=== PATIENT | male | born 1955 ===

== ENCOUNTER 2020-03-28 21:24 | Emergency (ER) | payer SELFPAY ==
[~2020-03-28] VITALS: Ht 172.7 cm; Wt 81.8 kg
[2020-03-28] MEDS ORDERED: PLEASE ENTER ALLERGIES MC SCH (22:00)
[2020-03-28 22:31] LABS: BASOPHILS % (AUTO) 1 % (0-1); EOSINOPHILS % (AUTO) 1 % (1-7); LYMPHOCYTES % (AUTO) 14 % (22-44); MEAN CORPUSCULAR HEMOGLOBIN 30.9 pg (27.5-34.5); MEAN CORPUSCULAR HGB CONC 33.6 g/dL (33.2-36.2); MEAN PLATELET VOLUME 8.5 fL (7.4-10.4); MONOCYTES % (AUTO) 7 % (2-9); NEUTROPHILS % (AUTO) 77 % (42-75); PLATELET COUNT 179 x10^3/uL (130-400); RED BLOOD COUNT 4.99 x10^6/uL (4.38-5.82); RED CELL DISTRIBUTION WIDTH 14.1 % (9.4-14.8)
[2020-03-28 22:35] LABS: MD NO
[2020-03-28 22:40] LABS: ALBUMIN 3.8 g/dL (3.4-5.0); ANION GAP 3 mmol/L (5-15); CALCIUM 8.9 mg/dL (8.5-10.1); CHLORIDE 109 mmol/L (98-107); CREATININE 1.07 mg/dL (0.7-1.3)
[2020-03-28 22:55] VITALS: BP 184/100
== END 2020-03-28 23:14 | disposition home or self-care (01) ==
LOC: ED 22:30
DX: I10 Essential (primary) hypertension (principal); R06.02 Shortness of breath; R07.9 Chest pain, unspecified; R94.31 Abnormal electrocardiogram [ECG] [EKG]
CPT/HCPCS: 36415; 71045; 80048; 82040; 85025; 99284

== ENCOUNTER 2020-11-23 20:48 | Emergency (ER) | payer OTHER ==
[~2020-11-23] VITALS: Ht 172.7 cm; Wt 87.0 kg
--- NOTE | 2020-11-23 21:05 | NUR ---
[facility] FOR C/O LEFT LOWER LEG CELLULITIS X1 WEEK, ALSO REPORTS HE HAS SMALL BUMP ON RIGHT BUTTOCK. PT PLACED ON ALL MONITORS. ONE GUARD AT BEDSIDE WITH PT.
[2020-11-23] MEDS ORDERED: LIDOCAINE-MPF 2% ,5ML ONE (21:26)
[2020-11-23] MEDS ORDERED: LIDOCAINE 1%, 10ML INFIL ONE (21:30)
[2020-11-23] MEDS ORDERED: DIPH,PERTUSS(ACELL),TET VAC/PF 0.5 ML IM-VACC ONE ×2 (21:30→21:37)
--- NOTE | 2020-11-23 21:42 | NUR ---
LAB AT BEDSIDE.
[2020-11-23 21:51] LABS: BASOPHILS % (AUTO) 1 % (0-1); EOSINOPHILS % (AUTO) 2 % (1-7); LYMPHOCYTES % (AUTO) 16 % (22-44); MEAN CORPUSCULAR HEMOGLOBIN 31.8 pg (27.5-34.5); MEAN CORPUSCULAR HGB CONC 35.1 g/dL (33.2-36.2); MEAN PLATELET VOLUME 8.5 fL (7.4-10.4); MONOCYTES % (AUTO) 9 % (2-9); NEUTROPHILS % (AUTO) 73 % (42-75); PLATELET COUNT 210 x10^3/uL (130-400); RED CELL DISTRIBUTION WIDTH 12.9 % (9.4-14.8)
[2020-11-23 22:02] LABS: ALBUMIN 3.5 g/dL (3.4-5.0); ANION GAP 6 mmol/L (5-15); CALCIUM 8.7 mg/dL (8.5-10.1); CHLORIDE 108 mmol/L (98-107); CREATININE 1.22 mg/dL (0.7-1.3)
[2020-11-23 22:20] VITALS: BP 158/81
== END 2020-11-23 22:49 | disposition home or self-care (01) ==
LOC: ED 21:00
DX: L03.116 Cellulitis of left lower limb (principal); L02.416 Cutaneous abscess of left lower limb; I10 Essential (primary) hypertension
CPT/HCPCS: 10060; 36415; 80048; 82040; 85025; 90471; 90715